=== PATIENT | male | born 1970 | race African-American/Black ===

== ENCOUNTER 2022-07-07 01:34 | Emergency (ER) | payer SELFPAY ==
[~2022-07-07] VITALS: Ht 182.8 cm; Wt 95.3 kg
== END 2022-07-07 08:32 | disposition home or self-care (01) ==
LOC: ED 01:34
DX: S09.90XA Unspecified injury of head, initial encounter (principal); F10.129 Alcohol abuse with intoxication, unspecified; Y90.9 Presence of alcohol in blood, level not specified; W18.39XA Other fall on same level, initial encounter; Y93.89 Activity, other specified; Y92.89 Other specified places as the place of occurrence of the external cause; Y99.8 Other external cause status